=== PATIENT | male | born 1960 | race Caucasian/White ===

== ENCOUNTER 2020-03-18 14:02 | Outpatient (REF) | payer BC, SELFPAY ==
--- NOTE | 2020-03-18 14:04 | XR_ITS ---
EXAMINATION: BILATERAL KNEE X-RAY CLINICAL INFORMATION: Osteoarthritis left knee COMPARISON: Previous x-ray March 2009 TECHNIQUE: Standing AP view of both knees and lateral and sunrise view of the left kidney FINDINGS: Left knee: There is valgus angulation at the knee joint. No fracture or dislocation is seen. There is tricompartment arthritis. There is a small joint effusion. Standing AP view of the right knee demonstrates mild arthritis at the femoral tibial joints and lateral degenerative meniscal calcification. IMPRESSION: Left knee: Valgus angulation, tricompartment arthritis and small joint effusion. Right knee: Minimal degenerative change at the femoral tibial joint s.
== END 2020-03-18 14:03 | disposition home or self-care (01) ==
LOC: HO.XRAY 14:02
PROVIDERS: PCP Internal Medicine Gastroenterology; Referring Provider Internal Medicine Gastroenterology; Visit Provider Orthopaedic Surgery
DX: M17.12 Unilateral primary osteoarthritis, left knee (principal)
CPT/HCPCS: 73560; 73565

== ENCOUNTER 2020-10-07 08:22 | Outpatient (REF) | payer BC, SELFPAY ==
--- NOTE | ~2020-10-07 | XR_ITS ---
EXAMINATION: KNEE X-RAY CLINICAL INFORMATION: Pain COMPARISON: Previous x-ray most recent February 2020 TECHNIQUE: Standing AP view of both knees and lateral and sunrise view of the left knee FINDINGS: Left: There is valgus angulation. No fracture or dislocation is seen. There is arthritis at the femoral tibial and patellofemoral joints with joint space narrowing and osteophyte formation. There is a small joint effusion. Standing AP view of the right knee demonstrates arthritis at the medial femoral tibial joint and lateral meniscal soft tissue calcification. XR/XR knee LT 2V IMPRESSION: Left knee: Valgus angulation and moderate arthritis. Right knee: Minimal degenerative change at the femoral tibial joint.
--- NOTE | ~2020-10-07 | XR_ITS ---
EXAMINATION: KNEE X-RAY CLINICAL INFORMATION: Pain COMPARISON: Previous x-ray most recent February 2020 TECHNIQUE: Standing AP view of both knees and lateral and sunrise view of the left knee FINDINGS: Left: There is valgus angulation. No fracture or dislocation is seen. There is arthritis at the femoral tibial and patellofemoral joints with joint space narrowing and osteophyte formation. There is a small joint effusion. Standing AP view of the right knee demonstrates arthritis at the medial femoral tibial joint and lateral meniscal soft tissue calcification. XR/XR knee standing BI IMPRESSION: Left knee: Valgus angulation and moderate arthritis. Right knee: Minimal degenerative change at the femoral tibial joint.
== END 2020-10-07 08:23 | disposition home or self-care (01) ==
LOC: HO.HOSX 08:22
PROVIDERS: Visit Provider Orthopaedic Surgery
DX: M17.0 Bilateral primary osteoarthritis of knee (principal); M21.062 Valgus deformity, not elsewhere classified, left knee
CPT/HCPCS: 20610; 73560; 73565; J1100